=== PATIENT | female | born 1965 | race Caucasian/White ===

== ENCOUNTER 2018-02-21 11:22 | Emergency (ER) | payer MEDICAID ==
[~2018-02-21] VITALS: Ht 160 cm; Wt 48.1 kg
[~2018-02-21 11:22] MED LIST: LISI-600 PO
[2018-02-21 11:45] VITALS: BP_SYST 163
[2018-02-21] MEDS ORDERED: IBUPROFEN 800 MG TABLET PO ONE (12:00)
[2018-02-21] MEDS ORDERED: hydrALAZINE HCL 25 MG TABLET PO ONE (12:00)
[2018-02-21] MEDS ORDERED: hydrALAZINE HCL 10 MG TABLET PO ONE (12:15)
[2018-02-21 12:52] VITALS: BP_SYST 141
== END 2018-02-21 12:48 | disposition home or self-care (01) ==
LOC: SED 11:22
DX: L55.1 Sunburn of second degree (principal); I10 Essential (primary) hypertension
CPT/HCPCS: 99283

== ENCOUNTER 2020-11-07 20:15 | Emergency (ER) | payer MEDICAID ==
[~2020-11-07] VITALS: Ht 160 cm; Wt 68.9 kg
[~2020-11-07 20:15] MED LIST changes: -LISI-600 PO; +LISI20TA30 PO
[2020-11-07 20:27] VITALS: BP_SYST 171
[2020-11-07 23:37] VITALS: BP_SYST 165
== END 2020-11-07 23:38 | disposition home or self-care (01) ==
LOC: SED 20:15
DX: M25.562 Pain in left knee (principal); I10 Essential (primary) hypertension; W01.0XXA Fall on same level from slipping, tripping and stumbling without subsequent striking against object, initial encounter; Y93.89 Activity, other specified; Y92.098 Other place in other non-institutional residence as the place of occurrence of the external cause; Y99.8 Other external cause status
CPT/HCPCS: 73564; 99283

== ENCOUNTER 2023-03-13 19:48 | Emergency (ER) | payer MEDICAID ==
[~2023-03-13] VITALS: Ht 160 cm; Wt 50.8 kg
[2023-03-13 19:55] VITALS: BP_SYST 148; PULSE 108; RESP 18; TEMP 97.8; O2SAT 98
[2023-03-13] MEDS ORDERED: IBUPROFEN 600 MG TABLET PO ONE (20:30)
[2023-03-13] MEDS ORDERED: DIPHTH,PERTUSS(ACELL),TET VAC 0.5 ML VIAL (Tdap) I.M. ONE (20:30)
[2023-03-13] MEDS ORDERED: AUG875 PO (20:34)
[2023-03-13] MEDS ORDERED: IBUP-1969 PO (20:34)
[2023-03-13] MEDS ORDERED: BACITRACIN 1 GM OINT TP ONE (20:45)
[2023-03-13 20:56] VITALS: BP_SYST 153; PULSE 93; RESP 18; TEMP 97.8; O2SAT 98
== END 2023-03-14 01:08 | disposition home or self-care (01) ==
LOC: SED 19:48
DX: S61.451A Open bite of right hand, initial encounter (principal); I10 Essential (primary) hypertension; Z79.899 Other long term (current) drug therapy; W55.01XA Bitten by cat, initial encounter; Y93.89 Activity, other specified; Y92.89 Other specified places as the place of occurrence of the external cause; Y99.8 Other external cause status
CPT/HCPCS: 90715; 99283

== ENCOUNTER 2023-08-06 13:05 | Emergency (ER) | payer MEDICAID ==
[~2023-08-06] VITALS: Ht 160 cm; Wt 52.2 kg
[~2023-08-06 13:05] MED LIST changes: +AUG875 PO; +IBUP-1969 PO
[2023-08-06 13:28] VITALS: BP_SYST 180; PULSE 109; RESP 22; TEMP 98.3; O2SAT 100
[2023-08-07] MEDS ORDERED: TRAM50TA2 PO (11:08)
[2023-08-07] MEDS ORDERED: VALA10002 PO (11:08)
== END 2023-08-06 14:12 | disposition left against medical advice (07) ==
LOC: SED 13:05
DX: R21 Rash and other nonspecific skin eruption (principal); Z53.21 Procedure and treatment not carried out due to patient leaving prior to being seen by health care provider
CPT/HCPCS: 99281

== ENCOUNTER 2023-08-07 09:38 | Emergency (ER) | payer MEDICAID ==
[~2023-08-07] VITALS: Ht 157.5 cm; Wt 52.2 kg
[2023-08-07 10:10] VITALS: BP_SYST 145; PULSE 76; RESP 17; TEMP 97.8; O2SAT 97
[2023-08-07] MEDS ORDERED: VALA10002 PO (11:08)
[2023-08-07] MEDS ORDERED: TRAM50TA2 PO (11:08)
== END 2023-08-07 11:53 | disposition home or self-care (01) ==
LOC: SED 09:38
DX: B02.9 Zoster without complications (principal); R21 Rash and other nonspecific skin eruption; R51.9 Headache, unspecified; I10 Essential (primary) hypertension; Z79.899 Other long term (current) drug therapy
CPT/HCPCS: 99283

== ENCOUNTER 2024-03-11 18:27 | Emergency (ER) | payer MEDICAID ==
[~2024-03-11] VITALS: Ht 160 cm; Wt 52.2 kg
[~2024-03-11 18:27] MED LIST changes: +TRAM50TA2 PO; +VALA10002 PO
[2024-03-11 18:51] VITALS: BP_SYST 168; PULSE 100; RESP 18; TEMP 97.4; O2SAT 97
[2024-03-11] MEDS ORDERED: PRED20TA PO (20:07)
[2024-03-11] MEDS: methylPREDNISolone SOD SUCC/PF 62.5 MG/ML VIAL IM ONE (20:16)
[2024-03-11 20:28] VITALS: BP_SYST 150; PULSE 100; RESP 18; TEMP 97.4; O2SAT 97
== END 2024-03-11 20:28 | disposition home or self-care (01) ==
LOC: SED 18:27
DX: M13.851 Other specified arthritis, right hip (principal); I10 Essential (primary) hypertension; F15.90 Other stimulant use, unspecified, uncomplicated; Z79.899 Other long term (current) drug therapy; Z79.2 Long term (current) use of antibiotics
CPT/HCPCS: 96372; 99283; J2930